=== PATIENT | male | born 1945 | race Caucasian/White ===

== ENCOUNTER 2017-10-12 04:27 | Observation (INO) | payer MEDICARE ==
[~2017-10-12] VITALS: Ht 182.9 cm; Wt 120.0 kg
[~2017-10-12 04:27] MED LIST: ADLT ASA LOW81 MG PO; AMOX/K CLAV875 M1 PO; AMOXICILLIN500 MG PO; AUGMENTIN875TAB PO; CARVEDILOL3.125 MG PO; CIPROFLOXACN500 MG PO; CLARITHROMYC500 MG PO; CLOPIDOGREL75 MG PO; EFFIENT10 MG OR; FLEXERIL PO; FLOMAX0.4 M1 PO; FLORASTOR250 M1 PO; LEVAQUIN750 MG PO; LIPITOR20 MG PO; LISINOPRIL2.5 MG PO; MEDDOSEPAK PO; NITROSTAT0.4 MG PO; PRILOSEC20 MG PO; PROSTATE; ROBITUSSIN AC10 ML PO; TAMSULOSIN0.4 MG PO; [UNRECOGNIZED DRUG - MIXTURE] OR
[2017-10-12] MEDS ORDERED: ALFUZOSIN HCL E10 MG PO (04:57)
[2017-10-12] MEDS ORDERED: FINASTERIDE5 MG PO (04:58)
[2017-10-12] MEDS ORDERED: BENZONATATE200 MG PO (04:59)
[2017-10-12] MEDS ORDERED: CEPHALEXIN500 MG PO (04:59)
[2017-10-12 05:36] LABS: HEMOGLOBIN 13.5 g/dl (14.0-18.0); IMMATURE GRANULOCYTES 0.9 % (0.0-1.0); MEAN CELL VOLUME 91.3 fL CALC (80.0-100.0); MEAN CORPUSCULAR HGB 30.1 pG CALC (26.0-32.0); MEAN CORPUSCULAR HGB CONC 32.9 g/L CALC (32.0-36.0); NEUT# 10.95 thou/uL (1.82-7.42); RED BLOOD COUNT 4.49 mill/uL (4.70-6.10); RED CELL DISTRI WIDTH 12.2 % (11.5-15.5)
[2017-10-12 05:41] LABS: ALBUMIN 4.2 g/dL (3.2-5.0); ALKALINE PHOSPHATASE 161 u/l (38-126); ANION GAP 16 (6-22 (CALC)); BILIRUBIN, TOTAL 0.7 mg/dL (0.0-1.4); BUN 25 mg/dL (8-23); BUN/CREATININE RATIO 27 (12-20 (CALC)); CALCIUM 9.1 mg/dL (8.4-10.2); CARBON DIOXIDE 28 mmol/l (22-30); CHLORIDE 104 mmol/l (95-108); CREATININE 0.9 mg/dL (0.7-1.3); GFR > 60 ML/MIN (>=60 (CALC)); GFR FOR AFR.AMER. > 60 ML/MIN (>=60 (CALC)); GLUCOSE 143 mg/dL (82-115); POTASSIUM 4.2 mmol/l (3.5-5.1); SGOT/AST 25 u/l (19-48); SGPT/ALT 35 u/l (11-66); SODIUM 144 mmol/l (137-146); TOTAL PROTEIN 7.6 g/dL (6.3-8.2)
[2017-10-12 06:26] LABS: INFLUENZA A NONE DETECTED (NONE DETECT); INFLUENZA B NONE DETECTED (NONE DETECT)
[2017-10-12 07:44] VITALS: BP 125/77
[2017-10-12] MEDS ORDERED: ZPAK PO (13:28)
[2017-10-12] MEDS ORDERED: PREDNISONE20 MG PO (13:29)
== END 2017-10-12 15:14 | disposition home or self-care (01) ==
LOC: ED 04:27 → ED-I 06:23 → ED 06:38 → MS2 06:39
PROVIDERS: Emergency Medicine; ADMIT Internal Medicine; ATTEND Internal Medicine
DX: J20.9 Acute bronchitis, unspecified (principal); H10.9 Unspecified conjunctivitis; I25.10 Atherosclerotic heart disease of native coronary artery without angina pectoris; I10 Essential (primary) hypertension; I25.2 Old myocardial infarction; E78.5 Hyperlipidemia, unspecified; Z95.5 Presence of coronary angioplasty implant and graft; Z87.891 Personal history of nicotine dependence; R06.02 Shortness of breath

== ENCOUNTER → 2018-12-10 | Outpatient (REF) | payer MEDICARE ==
[~2018-12-10] MED LIST changes: +ALFUZOSIN HCL E10 MG PO; +BENZONATATE200 MG PO; +CEPHALEXIN500 MG PO; +FINASTERIDE5 MG PO; +PREDNISONE20 MG PO; +ZPAK PO
== END | disposition home or self-care (01) ==
LOC: DI 10:07
PROVIDERS: ATTEND Internal Medicine
DX: M25.561 Pain in right knee (principal); M25.562 Pain in left knee

== ENCOUNTER 2023-12-10 07:48 | Observation (INO) | payer MEDICARE ==
[2023-12-10] VITALS (20 sets, daily range): BP systolic 92–148; BP diastolic 53–87
[~2023-12-10] VITALS: Ht 182.9 cm; Wt 127.8 kg
[2023-12-10] MEDS ORDERED: ASPIRIN 81 MG/TAB PO ONE (07:55)
[2023-12-10 08:34] LABS: BASO% 0.5 % (0-3); EOS% 2.8 % (0-8); HEMATOCRIT 43.9 % (39.0-50.0); HEMOGLOBIN 14.4 g/dl (14.0-18.0); IMMATURE GRANULOCYTES 0.3 % (0.0-5.0); LYMPH% 15.5 % (15-41); MEAN CORPUSCULAR HGB 30.2 pG CALC (26.0-32.0); MEAN CORPUSCULAR HGB CONC 32.8 g/dL CAL (32.0-36.0); MONO% 8.4 % (2-13); NEUT# 4.15 thou/uL (1.82-7.42); NEUT% 72.5 % (42-76); RED BLOOD COUNT 4.77 mill/uL (4.70-6.10); RED CELL DISTRI WIDTH 12.3 % (11.5-15.5)
[2023-12-10 09:03] LABS: ALBUMIN 4.2 g/dL (3.2-5.0); ALKALINE PHOSPHATASE 125 u/l (38-126); ANION GAP 12 (6-22 (CALC)); BUN 24 mg/dL (8-23); BUN/CREATININE RATIO 22 (12-20 (CALC)); CARBON DIOXIDE 27 mmol/l (22-30); CHLORIDE 105 mmol/l (95-108); CREATININE 1.1 mg/dL (0.7-1.3); GFR FOR AFR.AMER. > 60 ML/MIN (>=60 (CALC)); GFR OTHER RACES > 60 ML/MIN (>=60 (CALC)); POTASSIUM 4.3 mmol/l (3.5-5.1); SGOT/AST 25 u/l (19-48); SODIUM 140 mmol/l (137-146); TOTAL PROTEIN 7.2 g/dL (6.3-8.2)
[2023-12-10 09:05] LABS: BILIRUBIN, TOTAL 0.5 mg/dL (0.2-1.3)
[2023-12-10] MEDS ORDERED: methylPREDNISolone SODIUM SUCC 125 MG/2 ML SDV IV ONE (09:20)
[2023-12-10] MEDS ORDERED: IPRATROPIUM-Albuterol 0.5MG-2.5MG/3 ML NEB ONE (09:20)
[2023-12-10] MEDS ORDERED: ACETAMINOPHEN 325 MG/TAB PO PRN (12:40)
[2023-12-10] MEDS ORDERED: MORPHINE SULFATE 4 MG/ML VIAL IV PRN (12:40)
[2023-12-10] MEDS ORDERED: SODIUM CHLORIDE 0.9% 1,000 ML IV PRN (12:40)
[2023-12-10] MEDS ORDERED: NITROGLYCERIN 0.4 MG/TAB SL PRN (12:40)
[2023-12-10] MEDS ORDERED: MAGNESIUM HYDROXIDE 30 ML UDC PO PRN (12:40)
[2023-12-10] MEDS ORDERED: ENOXAPARIN SODIUM 40 MG/0.4 ML SYR SC SCH (21:00)
[2023-12-10] MEDS ORDERED: ATORVASTATIN CALCIUM 40 MG/TAB PO SCH (21:00)
[2023-12-10] MEDS ORDERED: CARVEDILOL 3.125 MG/TAB PO SCH (21:00)
[2023-12-11 00:07] VITALS: BP 122/69
[2023-12-11 04:24] VITALS: BP 104/43
[2023-12-11 06:36] LABS: ALBUMIN 3.8 g/dL (3.2-5.0); ALKALINE PHOSPHATASE 97 u/l (38-126); ANION GAP 9 (6-22 (CALC)); BILIRUBIN, TOTAL 0.5 mg/dL (0.2-1.3); BUN 25 mg/dL (8-23); BUN/CREATININE RATIO 29 (12-20 (CALC)); CALCULATED LDLCHOLESTEROL 65 mg/dL (62-129 (CALC)); CARBON DIOXIDE 26 mmol/l (22-30); CHLORIDE 108 mmol/l (95-108); CHOLESTEROL HDL RATIO 4.5 (<4.4 (CALC)); CREATININE 0.9 mg/dL (0.7-1.3); GFR FOR AFR.AMER. > 60 ML/MIN (>=60 (CALC)); GFR OTHER RACES > 60 ML/MIN (>=60 (CALC)); HDL CHOLESTEROL 28 mg/dL (39.0-59.0); MAGNESIUM 1.9 mg/dL (1.6-2.3); POTASSIUM 4.1 mmol/l (3.5-5.1); SGOT/AST 23 u/l (19-48); SODIUM 139 mmol/l (137-146); TOTAL CHOLESTEROL 127 mg/dl (0-199); TOTAL PROTEIN 6.2 g/dL (6.3-8.2); TOTAL TRIGLYCERIDES 169 mg/dl (0-149); VLDL CHOLESTROL 34 mg/dl (0-38 (CALC))
[2023-12-11 06:49] LABS: BASO% 0.1 % (0-3); EOS% 0.1 % (0-8); HEMATOCRIT 40.4 % (39.0-50.0); HEMOGLOBIN 13.6 g/dl (14.0-18.0); IMMATURE GRANULOCYTES 0.4 % (0.0-5.0); LYMPH% 7.7 % (15-41); MEAN CELL VOLUME 91.8 fL CALC (80.0-100.0); MEAN CORPUSCULAR HGB 30.9 pG CALC (26.0-32.0); MEAN CORPUSCULAR HGB CONC 33.7 g/dL CAL (32.0-36.0); MONO% 6.4 % (2-13); NEUT# 9.53 thou/uL (1.82-7.42); NEUT% 85.3 % (42-76); RED BLOOD COUNT 4.4 mill/uL (4.70-6.10); RED CELL DISTRI WIDTH 12.3 % (11.5-15.5)
[2023-12-11 07:19] VITALS: BP 90/59
[2023-12-11] MEDS ORDERED: LISINOPRIL 2.5 MG TAB PO SCH (09:00)
[2023-12-11] MEDS ORDERED: FINASTERIDE 5 MG/TAB PO SCH (09:00)
[2023-12-11] MEDS ORDERED: ASPIRIN 81 MG/TAB PO SCH (09:00)
[2023-12-11 11:11] VITALS: BP 94/56
[2023-12-11] MEDS ORDERED: LIPITOR20 MG PO (13:32)
== END 2023-12-11 14:08 | disposition home or self-care (01) ==
LOC: ED 07:48 → ED-I 11:00 → ED 11:34 → MS2 11:35
PROVIDERS: Family Medicine; ADMIT Student in an Organized Health Care Education/Training Program; ATTEND Student in an Organized Health Care Education/Training Program
DX: R07.89 Other chest pain (principal); I10 Essential (primary) hypertension; I25.10 Atherosclerotic heart disease of native coronary artery without angina pectoris; E78.5 Hyperlipidemia, unspecified; I25.2 Old myocardial infarction; Z95.5 Presence of coronary angioplasty implant and graft; Z87.891 Personal history of nicotine dependence; Z20.822 Contact with and (suspected) exposure to COVID-19
CPT/HCPCS: J1650; Q9967